=== PATIENT | male | born 1995 | race Caucasian/White ===

== ENCOUNTER 2017-08-06 19:47 | Inpatient (IN) | payer OTHER, BC ==
[~2017-08-06] VITALS: Ht 179.1 cm; Wt 79.2 kg
[2017-08-06] MEDS ORDERED: SODIUM CHLOR 0.9% 1000 ML INJ 1,000 ML IV SCH ×2 (19:54→22:05)
[2017-08-06] MEDS ORDERED: HYDROmorphone HCL PF 1 MG/ML VIAL IVS ONE (20:00)
[2017-08-06] MEDS ORDERED: SODIUM CHLORIDE 0.9% FLUSH 10 ML FLUSH IV FLUSH PRN ×2 (20:00→22:15)
[2017-08-06] MEDS ORDERED: ONDANSETRON HCL 4 MG/2 ML VIAL IVP ONE (20:00)
[2017-08-06 20:04] VITALS: BP 119/77; PULSE 84; RESP 18; TEMP 97.8; O2SAT 94
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
[2017-08-06 20:18] LABS: AUTOMATED NEUTROPHIL # 9.3 TH/MM3 (1.8-7.7); BASOPHIL # 0.1 TH/MM3 (0-0.2); BASOPHIL % 0.5 % (0.0-2.0); EOSINOPHIL % 0.3 % (0.0-4.0); HEMATOCRIT 41.7 % (39.0-51.0); HEMOGLOBIN 14.3 GM/DL (13.0-17.0); LYMPH % 14.6 % (9.0-44.0); LYMPHOCYTE # 1.7 TH/MM3 (1.0-4.8); MEAN CELL VOLUME 87.4 FL (80.0-100.0); MEAN CORPUSCULAR HGB CONC 34.4 % (32.0-36.0); MEAN PLATELET VOLUME 9.7 FL (7.0-11.0); MONO % 4.6 % (0.0-8.0); MONOCYTE # 0.5 TH/MM3 (0-0.9); PLATELET COUNT 256 TH/MM3 (150-450); RED BLOOD COUNT 4.77 MIL/MM3 (4.50-5.90); RED CELL DISTRIBUTION WIDTH 13.8 % (11.6-17.2); WHITE BLOOD COUNT 11.6 TH/MM3 (4.0-11.0)
[2017-08-06] MEDS ORDERED: IOHEXOL 350 MG/ML 10 ML VIAL (for RAD DIAG) IVCONTRAST ONE (20:26)
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
[2017-08-06 20:49] LABS: ALT (GPT) 373 U/L (12-78)
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
[2017-08-06 20:51] LABS: ALKALINE PHOSPHATASE 91 U/L (45-117); TOTAL BILIRUBIN ADULT 0.6 MG/DL (0.2-1.0); TOTAL PROTEIN 8.1 GM/DL (6.4-8.2)
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
[2017-08-06 22:00] VITALS: BP 140/85; PULSE 100; RESP 17; O2SAT 100
[2017-08-06] MEDS ORDERED: PANTOPRAZOLE SODIUM 40 MG VIAL IVP SCH (22:00)
[2017-08-06 22:12] LABS: BACTERIA, URINE OCC /hpf; BILIRUBIN, URINE NEG (NEG); BLOOD, URINE MOD (NEG); GLUCOSE,URINE NEG (NEG); KETONE, URINE NEG (NEG); NITRITE,URINE NEG (NEG); PH, URINE 6.5 (5.0-8.5); URINE COLOR YELLOW (YELLW/STRAW); URINE LEUKOCYTE ESTERASE NEG (NEG)
[2017-08-06] MEDS ORDERED: ONDANSETRON HCL 4 MG/2 ML VIAL IV PUSH PRN (22:15)
[2017-08-06] MEDS ORDERED: ACETAMINOPHEN/HYDROcodone 325 MG/5 MG TAB PO PRN ×2 (22:15)
[2017-08-06] MEDS ORDERED: MISCELLANEOUS NURSING INFORMATION XX SCH (22:15)
[2017-08-06] MEDS ORDERED: CHLORHEXIDINE GLUCONATE 2 % 1 PACK (2 CLOTHS) TOP PRN (22:15)
[2017-08-06] MEDS ORDERED: MAGNESIUM HYDROXIDE SUSP 30 ML CUP PO PRN (22:15)
[2017-08-06] MEDS ORDERED: ENALAPRILAT 1.25 MG/ML VIAL IV PUSH PRN (22:15)
[2017-08-06] MEDS: HYDROmorphone HCL PF 2 MG/ML VIAL IV PRN (22:39)
[2017-08-07] VITALS (10 sets, daily range): BP systolic 118–149; BP diastolic 58–91; PULSE 70–100; RESP 15–20; TEMP 96.4–99.3; O2SAT 96–100
[2017-08-07] MEDS: HYDROmorphone HCL PF 2 MG/ML VIAL IV PRN ×2 (00:05→05:09)
[2017-08-07] MEDS: CHLORHEXIDINE GLUCONATE 2 % 1 PACK (2 CLOTHS) TOP SCH (00:40)
[2017-08-07 01:05] LABS: BLOOD UREA NITROGEN 12 MG/DL (7-18); CREATININE 1.31 MG/DL (0.60-1.30); GLOMERULAR FILTRATION RATE 69 ML/MIN (>89); GLUCOSE,RANDOM 108 MG/DL (74-106)
[2017-08-07 01:06] LABS: ALBUMIN 3.9 GM/DL (3.4-5.0); AST (GOT) 351 U/L (15-37); CALCIUM 8.1 MG/DL (8.5-10.1); SODIUM (NA) 141 MEQ/L (136-145)
[2017-08-07 01:07] LABS: CHLORIDE 110 MEQ/L (98-107)
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
[2017-08-07 06:58] LABS: AUTOMATED NEUTROPHIL # 6.3 TH/MM3 (1.8-7.7); BASOPHIL % 0.3 % (0.0-2.0); EOSINOPHIL % 0.2 % (0.0-4.0); HEMATOCRIT 38.2 % (39.0-51.0); HEMOGLOBIN 12.9 GM/DL (13.0-17.0); LYMPH % 20.6 % (9.0-44.0); LYMPHOCYTE # 1.9 TH/MM3 (1.0-4.8); MEAN CELL VOLUME 88.2 FL (80.0-100.0); MEAN CORPUSCULAR HEMOGLOBIN 29.6 PG (27.0-34.0); MEAN CORPUSCULAR HGB CONC 33.6 % (32.0-36.0); MEAN PLATELET VOLUME 9.4 FL (7.0-11.0); MONO % 10.5 % (0.0-8.0); NEUT % 68.4 % (16.0-70.0); PLATELET COUNT 202 TH/MM3 (150-450); RED BLOOD COUNT 4.34 MIL/MM3 (4.50-5.90); WHITE BLOOD COUNT 9.2 TH/MM3 (4.0-11.0)
[2017-08-07 07:24] LABS: ALBUMIN 3.5 GM/DL (3.4-5.0); ALT (GPT) 283 U/L (12-78); AST (GOT) 253 U/L (15-37); BICARBONATE 26.8 MEQ/L (21.0-32.0); BLOOD UREA NITROGEN 10 MG/DL (7-18); CHLORIDE 110 MEQ/L (98-107); CREATININE 1.33 MG/DL (0.60-1.30); GLOMERULAR FILTRATION RATE 68 ML/MIN (>89); GLUCOSE,RANDOM 94 MG/DL (74-106); SODIUM (NA) 142 MEQ/L (136-145)
[2017-08-07 07:26] LABS: ALKALINE PHOSPHATASE 69 U/L (45-117); TOTAL BILIRUBIN ADULT 0.9 MG/DL (0.2-1.0); TOTAL PROTEIN 6.5 GM/DL (6.4-8.2)
[2017-08-07] MEDS ORDERED: LACTULOSE SYRUP 20 GM/30 ML CUP PO PRN (07:30)
[2017-08-07] MEDS: RESP: ALBUTEROL 2.5 MG/IPRATROPIUM 0.5 MG NEB (SCH) NEB ×4 (08:00→19:24)
[2017-08-07] MEDS: METHOCARBAMOL 500 MG TAB PO SCH ×3 (08:00→22:52)
[2017-08-07] MEDS: MAGNESIUM HYDROXIDE SUSP 30 ML CUP PO SCH ×2 (09:00→19:45)
[2017-08-07] MEDS: ACETAMINOPHEN 1000 MG/100 ML 100 ML IV SCH ×3 (09:00→19:44)
[2017-08-07] MEDS: LIDOCAINE HCL 5% PATCH T-DERMAL SCH (09:00)
[2017-08-07] MEDS: DOCUSATE SODIUM 50 MG/SENNA 8.6 MG TAB PO SCH ×2 (09:00→19:45)
[2017-08-07] MEDS ORDERED: INFLUENZA VIRUS VACCINE (QUADRIVALENT) 0.5 ML SYR IM ONE (09:00)
[2017-08-07] MEDS ORDERED: LIDOCAINE HCL 1% 50 ML VIAL INFIL ONE (09:15)
[2017-08-07] MEDS ORDERED: LIDOCAINE HCL 1% PF 30 ML VIAL INFIL ONE (10:30)
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
[2017-08-07] MEDS ORDERED: HYDROmorphone HCL PF 2 MG/ML VIAL IV PRN (12:45)
[2017-08-07 15:02] LABS: HEMATOCRIT 37.7 % (39.0-51.0); HEMOGLOBIN 12.5 GM/DL (13.0-17.0)
[2017-08-07] MEDS ORDERED: KETOROLAC TROMETHAMINE 30 MG/ML (IVP) VIAL IV PUSH SCH (18:00)
[2017-08-07 19:48] LABS: HEMATOCRIT 37.8 % (39.0-51.0); HEMOGLOBIN 12.5 GM/DL (13.0-17.0)
[2017-08-08] MEDS: ACETAMINOPHEN 1000 MG/100 ML 100 ML IV SCH (03:06)
[2017-08-08] MEDS: CHLORHEXIDINE GLUCONATE 2 % 1 PACK (2 CLOTHS) TOP SCH ×2 (04:00→20:44)
[2017-08-08 04:25] VITALS: BP 130/63; PULSE 75; RESP 18; TEMP 96.3; O2SAT 97
[2017-08-08] MEDS: METHOCARBAMOL 500 MG TAB PO SCH ×3 (04:32→20:41)
[2017-08-08 05:07] LABS: AUTOMATED NEUTROPHIL # 4.1 TH/MM3 (1.8-7.7); BASOPHIL % 0.5 % (0.0-2.0); EOSINOPHIL # 0.2 TH/MM3 (0-0.4); EOSINOPHIL % 2.5 % (0.0-4.0); HEMATOCRIT 37.1 % (39.0-51.0); HEMOGLOBIN 12.4 GM/DL (13.0-17.0); LYMPH % 23.6 % (9.0-44.0); LYMPHOCYTE # 1.5 TH/MM3 (1.0-4.8); MEAN CELL VOLUME 88.4 FL (80.0-100.0); MEAN CORPUSCULAR HEMOGLOBIN 29.5 PG (27.0-34.0); MEAN CORPUSCULAR HGB CONC 33.3 % (32.0-36.0); MEAN PLATELET VOLUME 9.5 FL (7.0-11.0); MONO % 7.7 % (0.0-8.0); MONOCYTE # 0.5 TH/MM3 (0-0.9); NEUT % 65.7 % (16.0-70.0); PLATELET COUNT 182 TH/MM3 (150-450); RED CELL DISTRIBUTION WIDTH 14.1 % (11.6-17.2); WHITE BLOOD COUNT 6.3 TH/MM3 (4.0-11.0)
[2017-08-08 05:26] LABS: ALBUMIN 3.2 GM/DL (3.4-5.0); ALT (GPT) 202 U/L (12-78); AST (GOT) 104 U/L (15-37); BICARBONATE 29.5 MEQ/L (21.0-32.0); BLOOD UREA NITROGEN 12 MG/DL (7-18); CHLORIDE 108 MEQ/L (98-107); CREATININE 1.29 MG/DL (0.60-1.30); GLOMERULAR FILTRATION RATE 70 ML/MIN (>89); GLUCOSE,RANDOM 91 MG/DL (74-106); SODIUM (NA) 142 MEQ/L (136-145)
[2017-08-08 05:28] LABS: ALKALINE PHOSPHATASE 73 U/L (45-117); TOTAL BILIRUBIN ADULT 0.4 MG/DL (0.2-1.0); TOTAL PROTEIN 6.4 GM/DL (6.4-8.2)
--- NOTE | 2017-08-08 05:54 | RADRPT ---
EXAM DATE/TIME: 08/08/2017 05:06 [facility] COMPARISON: CHEST SINGLE AP, August 07, 2017, 11:03. INDICATIONS : Follow up pneumothorax. MEDICAL HISTORY : None. SURGICAL HISTORY : None. ENCOUNTER: Subsequent ACUITY: 3 days PAIN SCORE: 7/10 LOCATION: Right chest FINDINGS: The heart size is normal. There is a right chest tube in place. A pneumothorax is not seen. There is hazy density at the medial right base which appears to be improving. The left lung is clear. CONCLUSION: 1. Right chest tube without pneumothorax seen. 2. Improving consolidation or atelectasis at the right medial base. Aric Sandoval MD on August 08, 2017 at 5:50 Board Certified Radiologist. This report was verified electronically.
[2017-08-08] MEDS: RESP: ALBUTEROL 2.5 MG/IPRATROPIUM 0.5 MG NEB (SCH) NEB ×4 (07:28→19:38)
[2017-08-08 08:00] VITALS: BP 119/60; PULSE 92; RESP 17; TEMP 96.8; O2SAT 97
[2017-08-08] MEDS: LIDOCAINE HCL 5% PATCH T-DERMAL SCH (08:32)
[2017-08-08] MEDS: DOCUSATE SODIUM 50 MG/SENNA 8.6 MG TAB PO SCH ×2 (08:33→20:41)
[2017-08-08] MEDS: MAGNESIUM HYDROXIDE SUSP 30 ML CUP PO SCH ×2 (08:36→20:41)
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
[2017-08-08 12:06] VITALS: BP 136/78; PULSE 88; RESP 18; TEMP 97.5; O2SAT 97
[2017-08-08 16:02] VITALS: BP 117/69; PULSE 79; RESP 18; TEMP 97.3; O2SAT 97
[2017-08-08 20:45] VITALS: BP 139/68; PULSE 99; RESP 17; TEMP 97.8; O2SAT 98
[2017-08-08 23:35] VITALS: BP 137/79; PULSE 80; RESP 17; TEMP 97.6; O2SAT 98
[2017-08-09 03:40] VITALS: BP 135/79; PULSE 88; RESP 17; TEMP 97.8; O2SAT 98
[2017-08-09] MEDS: METHOCARBAMOL 500 MG TAB PO SCH ×2 (03:58→13:09)
[2017-08-09 04:42] LABS: HEMATOCRIT 37.6 % (39.0-51.0); HEMOGLOBIN 12.7 GM/DL (13.0-17.0)
--- NOTE | 2017-08-09 07:03 | RADRPT ---
EXAM DATE/TIME: 08/09/2017 05:33 [facility] COMPARISON: No previous studies available for comparison. INDICATIONS : Cough, chest pain, follow up pneumothorax MEDICAL HISTORY : pneumothorax, rib fractures SURGICAL HISTORY : None. ENCOUNTER: Subsequent ACUITY: 4 - 6 days PAIN SCORE: 8/10 LOCATION: Bilateral chest FINDINGS: Hazy right base infiltrate is slightly larger in the interim, possibly related to expiratory techniqu e. The mild left perihilar infiltrate is not significantly changed. No large effusion demonstrated. N o pneumothorax. There is small caliber chest tube again seen at the right lung base. CONCLUSION: Persistent right base and left perihilar infiltrates. No pneumothorax.. Aric Jones MD on August 09, 2017 at 6:59 Board Certified Radiologist. This report was verified electronically.
[2017-08-09 07:33] VITALS: BP 136/85; PULSE 76; RESP 18; TEMP 97; O2SAT 98
[2017-08-09] MEDS: RESP: ALBUTEROL 2.5 MG/IPRATROPIUM 0.5 MG NEB (SCH) NEB ×2 (08:00→11:12)
[2017-08-09] MEDS: LIDOCAINE HCL 5% PATCH T-DERMAL SCH (08:23)
[2017-08-09] MEDS: DOCUSATE SODIUM 50 MG/SENNA 8.6 MG TAB PO SCH (08:24)
[2017-08-09] MEDS: MAGNESIUM HYDROXIDE SUSP 30 ML CUP PO SCH (08:24)
[2017-08-09] MEDS ORDERED: INFLUENZA VIRUS VACCINE (QUADRIVALENT) 0.5 ML SYR IM ONE (10:00)
[2017-08-09] MEDS ORDERED: PERC5TAB12 PO (11:43)
[2017-08-09] MEDS ORDERED: PERI PO (11:43)
[2017-08-09] MEDS ORDERED: METH500T3 PO (11:43)
[2017-08-09 12:00] VITALS: BP 151/75; PULSE 75; RESP 18; TEMP 98.1; O2SAT 97
[2017-08-09] MEDS ORDERED: LIDO1ADH4 T-DERMAL (12:33)
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
--- NOTE | 2017-08-10 10:12 | MP ---
cc: TEA HOYT MD DATE OF SURGERY 08/07/2017 PREOPERATIVE DIAGNOSES Right hemopneumothorax. POSTOPERATIVE DIAGNOSIS Right hemopneumothorax. OPERATIVE PROCEDURE Right PleurX chest tube placement. SURGEON Tea Hoyt MD ANESTHESIA 1% Xylocaine ESTIMATED BLOOD LOSS Minimal PROCEDURE The patient prepped and draped in the usual fashion. An area filtrated in the fifth intercostal space in anterior axillary line. A small incision made and with the 11 blade and then with the pigtail PleurX catheter, gradually the chest was entered. The trocars withdrawn and pigtail remains in place. It was sutured in place and connected to Pleur-Evac. The patient tolerated the procedure well. Chest x-ray obtained. Tea LOPES/SKYLARL /3:43 PM /10:07 AM
== END 2017-08-09 13:32 | disposition home or self-care (01) | DRG 964 ==
LOC: NEPC 19:47 → NEDA 21:17 → N03A 23:42 → N06B 08-07 14:38
PROVIDERS: ADMIT Surgery; ATTEND Surgery
PROC: 0HQBXZZ Repair Right Upper Arm Skin, External Approach (ICD-10-PCS; 2017-08-06)
PROC: 0W9930Z Drainage of Right Pleural Cavity with Drainage Device, Percutaneous Approach (ICD-10-PCS; principal; 2017-08-07)
DX: S27.0XXA Traumatic pneumothorax, initial encounter (principal); S36.115A Moderate laceration of liver, initial encounter; S22.41XA Multiple fractures of ribs, right side, initial encounter for closed fracture; S27.321A Contusion of lung, unilateral, initial encounter; S41.011A Laceration without foreign body of right shoulder, initial encounter; V43.63XA Car passenger injured in collision with pick-up truck in traffic accident, initial encounter; Z23 Encounter for immunization
CPT/HCPCS: 12002; 70450; 71045; 71260; 72125; 74177; 80053; 81001; 85014; 85018; 85025; 87086; 87641; 90686; 94150; 94640; 94664; 94667; 94668; 96361; 96374; C9113; J0131; J1170; J2405; J7030; Q2038; Q9967